=== PATIENT | male | born 1935 | race American Indian/Alaskan Native ===

== ENCOUNTER 2022-01-11 09:36 | Outpatient (CLI) | payer MEDICARE ==
--- NOTE | 2022-01-11 13:54 | Vascular Lab Report ---
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 TECHNIQUE: Arterial duplex examination of both lower extremities performed using B-mode, color flow a nd spectral Doppler assessment. FINDINGS: RIGHT: - Atherosclerotic Plaque: Significant. There is absence of color Doppler blood flow within the SFA, p opliteal artery, and anterior tibial artery. - Elevated Velocity (>200 cm/s): None. - Abnormal Waveform: Monophasic waveforms within the common femoral, posterior tibial, and dorsalis p cooper arteries. LEFT: - Atherosclerotic Plaque: Moderate. - Elevated Velocity (>200 cm/s): None. - Abnormal Waveform: Monophasic waveforms within the posterior tibial, anterior tibial, and dorsalis pedis arteries. ADDITIONAL FINDINGS: Collateral vessel formation is noted at the level of the right popliteal artery. Right FRANK: Not calculated. Left FRANK: Not calculated. IMPRESSION: 1. There is significant peripheral arterial disease on the right with occlusion of the SFA, popliteal , and anterior tibial arteries. 2. 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 Ankle-Brachial Index (FRANK): - Calcified arteries > 1.4 - Normal = 0.9-1.4 - Mild PAD = 0.7-0.89 - Moderate PAD = 0.51-0.69 - Severe PAD < 0.5 Doppler Waveform: - Triphasic is normal. - Biphasic is abnormal if clear transition from triphasic signal along vascular tree. - Monophasic is abnormal. Scribed by: Ada Ocasio RDMS, [place], [place] Scribed: 01/11/2022 11:45 AM I have reviewed the images, agree with this report, and edited this report as needed. Signer Name: Alexis Monroe MD Signed: 01/11/2022 1:49 PM Workstation Name: [id number]
== END 2022-01-11 09:37 | disposition home or self-care (01) ==
LOC: VAS 09:36
PROVIDERS: ATTEND Radiology Diagnostic Radiology
DX: I70.235 Atherosclerosis of native arteries of right leg with ulceration of other part of foot (principal)
CPT/HCPCS: 93925

== ENCOUNTER 2022-01-22 06:21 | Day surgery (SDC) | payer MEDICARE ==
[2022-01-22 08:22] LABS: Basophils % (Auto) 0.5 % (0.0-1.8); Eosinophils # (Auto) 0.1 K/mm3 (0.0-0.4); Eosinophils % (Auto) 1.3 % (0.0-4.3); Hematocrit 39.9 % (35.5-45.6); Lymphocytes % (Auto) 30.3 % (13.4-35.0); Mean Corpuscular HGB Conc 33 % (32-34); Mean Corpuscular Volume 92 fl (84-94); Monocytes # (Auto) 0.7 K/mm3 (0.0-0.8); Monocytes % (Auto) 10.8 % (0.0-7.3); Platelet Count 285 K/mm3 (140-440); Red Blood Count 4.35 M/mm3 (3.65-5.03); Red Cell Distribution Width 14.1 % (13.2-15.2)
[2022-01-22] MEDS ORDERED: HEPARIN/NS 5000 UNIT/500ML 1,000 ML IR ONE (08:22)
[2022-01-22] MEDS ORDERED: LIDOCAINE (2%) 20 MG/1 ML VIAL 20 ML MDV INFILTRATI ONE ×2 (08:22→08:25)
[2022-01-22] MEDS: SODIUM CHLORIDE 0.9% 500 ML 500 ML IV SCH ×3 (08:29→09:50)
[2022-01-22 08:33] LABS: INR 1.11 (0.87-1.13)
[2022-01-22 08:34] LABS: BUN/Creatinine Ratio 12; Blood Urea Nitrogen 11 mg/dL (9-20); Hemolysis Index 8; Partial Thromboplastin Time 29.1 Sec. (24.2-36.6)
[2022-01-22] MEDS ORDERED: HEPARIN 10,000 UNITS/10 ML VIAL ONE (08:34)
[2022-01-22] MEDS ORDERED: ceFAZolin/Water 2 GM/20 ML 2 GM/20 ML SYRINGE IV ONE (09:50)
--- NOTE | 2022-01-22 09:54 | Short Stay Summary ---
Short Stay Documentation Date of service: 01/22/22 Narrative H&P: 86-year-old male with peripheral vascular disease and critical limb ischemia of the right lower extremity who presents for endovascular revascularization. - History Principal diagnosis: Critical limb ischemia of the right lower extremity H&P: obtained from office - Allergies and Medications Current Medications: Allergies No Known Allergies Allergy (Verified 01/22/22 07:13) Home Medications Medication Instructions Recorded Confirmed Last Taken Type Clopidogrel [Plavix] 75 mg PO QDAY 01/22/22 01/22/22 01/21/22 History Metformin HCl [metFORMIN ER 500 mg PO DAILY 01/22/22 01/22/22 01/21/22 History Osmotic] Metoprolol [Lopressor TAB] 50 mg PO BID 01/22/22 01/22/22 01/21/22 History Pravastatin [Pravachol] 20 mg PO QHS 01/22/22 01/22/22 01/21/22 History amLODIPine [Norvasc] 10 mg PO DAILY 01/22/22 01/22/22 01/21/22 History cilostazoL [Pletal] 100 mg PO BID 01/22/22 01/22/22 01/21/22 History Active Medications Sodium Chloride (Nacl 0.9% 500 Ml) 500 mls @ 50 mls/hr IV DIRECT JESSICA Stop: 01/22/22 19:00 Last Admin: 01/22/22 08:43 Dose: 50 mls/hr - Physical exam General appearance: no acute distress Lungs: Normal air movement Heart: Regular rate Gastrointestinal: normal Extremities: normal temperature, normal color, abnormal (Right first digit gangrene) - Brief post op/procedure progress note Date of procedure: 01/22/22 Pre-op diagnosis: Peripheral vascular disease of the right lower extremity with gangrene Post-op diagnosis: same Procedure: 1. Ultrasound-guided access of the left common femoral artery. 2. Angiography of the left lower extremity. 3. Selection of the abdominal aorta with angiography. 4. Selection of the right external iliac artery, common femoral artery, and profunda femoral artery with angiography of the right lower extremity. 5. Closure of the left common femoral artery with 6 [place] ProGlide Anesthesia: local (With conscious sedation) Surgeon: KARISSA PERKINS Estimated blood loss: minimal Condition: stable - Hospital course Hospital course: Patient tolerated the procedure well. No immediate postprocedural compl ications. Discussed findings with family. - Disposition Condition at discharge: Stable Disposition: 01 HOME / SELF CARE / HOMELESS - Discharge Diagnoses (1) Atherosclerosis of right lower extremity with gangrene Status: Acute (2) Atherosclerosis of extremity with intermittent claudication Status: Acute Short Stay Discharge Plan Activity: advance as tolerated Weight Bearing Status: Weight Bear as Tolerated (Do not lift more than 10 pounds for 1 week) Diet: regular Wound: keep clean and dry Follow up with: PRIMARY CARE, [Primary Care Provider] - 7 Days Forms: Post Arteriogram Instruct Prescriptions: Pravastatin Sodium [Pravastatin] 10 mg PO QHS #90 tab Apixaban [Eliquis] 5 mg PO BID #180 tab HYDROcodone/APAP 5-325 [[place] 5/325] 1 each PO Q6HR PRN #25 tablet PRN Reason: Pain Pantoprazole Sodium 40 mg PO QDAY #90 tab
[2022-01-22] MEDS: MIDAZOLAM 2 MG/2 ML INJ ONE ×3 (10:05→10:24)
[2022-01-22] MEDS: fentaNYL 100 MCG/2 ML INJ ONE ×2 (10:06→10:16)
--- NOTE | 2022-01-22 13:18 | Operative Report ---
Operative Report Operative Report: EXAM: 1. Ultrasound-guided access of the left common femoral artery. 2. Angiography of the left lower extremity. 3. Selection of the abdominal aorta with angiography. 4. Selection of the right external iliac artery, common femoral artery, and profunda femoral artery with angiography of the right lower extremity. 5. Closure of the left common femoral artery with 6 [place] ProGlide DATE: 01/22/2022 STORYBOARD ARTIST: KARISSA PERKINS MD INDICATION: Critical limb ischemia of the right lower extremity with first digit gangrene with claudication of the left lower extremity. MEDICATIONS: Please see nursing report for full details. DEVICES: None CONTRAST: Please see catheter report for full details. PROCEDURE: Risks, benefits, and alternatives were discussed with the patient and his ; written informed consent was obtained. The patient was brought to the Outpatient Program Coordinator in stable condition and the groins were prepped and draped in sterile fashion. Ultrasound was used to evaluate the left common femoral artery which was patent. The left common femoral artery was accessed with a 21-gauge micropuncture needle and a 0.018 inch wire was passed into the aorta. Needle was exchanged for transitional dilator. Wire was exchanged for a 0.035 inch wire. Transitional dilator was exchanged for 5 [place] sheath. Digital subtraction angiography was performed demonstrating an appropriate puncture, above the bifurcation below the inferior epigastric artery. The left common femoral artery was patent. Catheter was used to select the abdominal aorta and digital subtraction angiography was performed. Catheter was used to select the right external iliac artery, common femoral artery, and profunda femoral artery and digital subtraction angiography was performed. After reviewing the images, the catheter was retracted to the abdominal aorta and exchanged for 0.035 inch wire. Digital subtraction angiography was performed to the sheath to evaluate the left lower extremity. After reviewing the images, I determined that intervention could not be performed as there was no distal target vessel amenable to recanalization or even for bypass. At this point, sheath was exchanged for 6 [place] Pro glide which was advanced over the 0.035 inch wire. This was used to close the arteriotomy achieving immediate hemostasis. Sterile dressing and pressure dressing applied. Patient tolerated the procedure well. No immediate postprocedural complications. FINDINGS: Aorta: The infrarenal abdominal aorta is patent. Right lower extremity: Right common iliac artery, external iliac artery, and internal iliac artery are patent. The right common femoral artery is patent. The right profunda femoral artery to the mid thigh is patent. The right proximal superficial femoral artery, mid superficial femoral artery, and distal superficial femoral artery are occluded. There is a 1 cm area of reconstituted above-knee popliteal artery. The rest of the popliteal artery is occluded. The tibioperoneal trunk, peroneal artery, posterior tibial artery, and anterior tibial are are all occluded. There is no distal reconstitution. All flow to the lower extremities occurs through collateral vessels. Some of the vessels are corkscrew shaped, but the patient denies a history of smoking. There is no target vessels amenable for recanalization or bypass. Left lower extremity: The left common iliac artery, external iliac artery, and internal iliac artery are patent. The left common femoral artery, and profunda femoral artery are patent. The left proximal superficial femoral artery is patent. The left mid superficial femoral artery is ectatic. The left distal superficial femoral artery is mildly ectatic. The left above-knee popliteal artery has a 30% stenosis. The left mid knee popliteal artery has a 40% stenosis. There is no below-knee popliteal artery as there is a high takeoff of the anterior tibial artery. The anterior tibial artery is patent for the first 10 cm. Afterwards the entire anterior tibial artery is occluded with essentially no reconstitution. There are collaterals from the anterior tibial artery providing flow down the foot. The tibial peroneal trunk is occluded half a centimeter after takeoff. There is no reconstitution of the peroneal artery or posterior tibial arteries. There is no target vessel for revascularization or bypass. IMPRESSION: Third order selection of the right profunda femoral artery. Bilateral lower extremity angiography. 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 Unfortunately due to the duration of his symptoms, he is not a candidate for thrombolysis as this represents chronic sequelae of cardioembolic events. The patient was started on anticoagulation. Proper use discussed. Patient was started on pantoprazole for GI prophylaxis. The patient was switched from Plavix to baby aspirin. This was all discussed in depth and written down for the patient.
[2022-01-22 15:58] VITALS: BP 166/88
== END 2022-01-22 15:59 | disposition home or self-care (01) ==
LOC: CATHLABREC 06:21
PROVIDERS: ATTEND Radiology Diagnostic Radiology
DX: I70.261 Atherosclerosis of native arteries of extremities with gangrene, right leg (principal); I70.235 Atherosclerosis of native arteries of right leg with ulceration of other part of foot; I70.213 Atherosclerosis of native arteries of extremities with intermittent claudication, bilateral legs; I10 Essential (primary) hypertension; E11.51 Type 2 diabetes mellitus with diabetic peripheral angiopathy without gangrene; G62.9 Polyneuropathy, unspecified; E78.00 Pure hypercholesterolemia, unspecified; Z79.899 Other long term (current) drug therapy; Z79.84 Long term (current) use of oral hypoglycemic drugs; Z98.890 Other specified postprocedural states
CPT/HCPCS: 36247; 36415; 75625; 75710; 80048; 85025; 85610; 85730; 99156; 99157; C1760; C1769; C1887; J0690; J1644; J2250; J3010; J3490; J7040; Q9967

== ENCOUNTER 2022-03-07 09:47 | Outpatient (CLI) | payer MEDICARE ==
[2022-03-07 11:30] LABS: Blood Urea Nitrogen 15 mg/dL (9-20)
--- NOTE | 2022-03-07 14:34 | Cat Scan Report ---
CTA ABDOMEN AND PELVIS WITH IV CONTRAST INDICATION: Atherosclerosis of [place] arteries. TECHNIQUE: Axial CT images were obtained through the abdomen and pelvis before and after after injection of 100 cc Omnipaque 300 IV contrast. 3 plane MIP reconstructions were produced. [facility] dose reduction for ALARA by means of automated exposure control. COMPARISON: Bilateral lower extremity arterial Doppler performed on 01/11/2022. FINDINGS: VASCULAR FINDINGS: AORTA: Normal in caliber with mild atherosclerosis. No dissection or other significant abnormality. CELIAC TRUNK: Moderate stenosis is seen at the origin of the celiac trunk with poststenotic dilatatio n. No other significant abnormality. SUPERIOR MESENTERIC ARTERY: Moderate stenosis is seen along the proximal third of the vessel approxim ately 1.5 cm from the vessel origin with associated noncalcified plaques. There is mild nonobstructiv e atherosclerosis distally. No other significant abnormality. RENAL ARTERIES: Single patent renal arteries are seen bilaterally with mild nonobstructive atheroscle rosis at the vessel origins. INFERIOR MESENTERIC ARTERY: No significant abnormality. RIGHT ILIAC ARTERIES: There is mild tortuosity of the right iliac arteries with mild nonobstructive a therosclerosis. No other significant abnormality. LEFT ILIAC ARTERIES: There is mild tortuosity of the left iliac arteries with mild nonobstructive ath erosclerosis. No other significant abnormality. FEMORAL ARTERIES: The right SFA is occluded at its origin. Otherwise, mild nonobstructive atheroscler osis is visualized bilaterally. No other significant abnormality. NONTARGET STRUCTURES: ABDOMEN: No significant abnormality. PELVIS: No significant abnormality. SKELETAL: No acute findings. There is moderate lumbar spondylosis with mild degenerative changes thro ughout the pelvis. ADDITIONAL FINDINGS: None. IMPRESSION: 1. Occlusion of the right SFA at its origin. No other significant stenosis/occlusion along the aorta, iliac arteries or the other visualized femoral arteries. 2. Additional findings as above. Signer Name: Rudolph Collins MD Signed: 03/07/2022 2:30 PM Workstation Name: [id number]
== END 2022-03-07 09:48 | disposition home or self-care (01) ==
LOC: CT 09:47
PROVIDERS: ATTEND Radiology Diagnostic Radiology
DX: I70.213 Atherosclerosis of native arteries of extremities with intermittent claudication, bilateral legs (principal); I70.235 Atherosclerosis of native arteries of right leg with ulceration of other part of foot; M47.816 Spondylosis without myelopathy or radiculopathy, lumbar region
CPT/HCPCS: 36415; 74174; 82565; 84520; Q9967